=== PATIENT | male | born 1985 | race Caucasian/White ===

== ENCOUNTER 2020-06-04 17:00 | Emergency (ER) | payer MEDICAID ==
[~2020-06-04] VITALS: Ht 188 cm; Wt 122.7 kg
[2020-06-04 17:06] VITALS: BP 142/74
[2020-06-04] MEDS ORDERED: TRIA15CR61 TOP (17:30)
[2020-06-04] MEDS ORDERED: triamcinolone acetonide 40mg/ml inj IM ONE (17:30)
== END 2020-06-04 18:04 | disposition home or self-care (01) ==
LOC: ER 17:00
DX: L23.9 Allergic contact dermatitis, unspecified cause (principal); Z72.89 Other problems related to lifestyle; Z79.899 Other long term (current) drug therapy
CPT/HCPCS: 96372; 99283; J3301